=== PATIENT | female | born 1945 | race Two or more races ===

== ENCOUNTER 2021-10-26 05:35 | Day surgery (SDC) | payer OTHER ==
[~2021-10-26 05:35] MED LIST: BONIVA150 MG PO; DILTIAZEM 24HR240 MG PO; GABAPENT PO; JANUMET 50-5001 EACH PO; PANTOPRAZOLE SO40 MG PO; PRAVASTATIN SOD20 MG PO; [UNRECOGNIZED DRUG - OTHER] PO; [UNRECOGNIZED DRUG - OTHER] PO
[2021-10-26] MEDS ORDERED: PERCOCET 5-3251 EACH PO (09:41)
== END 2021-10-26 12:00 | disposition home or self-care (01) ==
LOC: CIR.AMB 05:35
PROVIDERS: ATTEND Surgery
DX: K64.2 Third degree hemorrhoids (principal); K62.1 Rectal polyp; K62.89 Other specified diseases of anus and rectum; Z88.6 Allergy status to analgesic agent; I10 Essential (primary) hypertension; M19.90 Unspecified osteoarthritis, unspecified site; K21.9 Gastro-esophageal reflux disease without esophagitis; E78.00 Pure hypercholesterolemia, unspecified